=== PATIENT | female | born 1935 | race Caucasian/White ===

== ENCOUNTER → 2019-07-15 | Outpatient (CLI) | payer MEDICARE ==
--- NOTE | 2019-07-15 13:31 | PCVCIMAG ---
APPROVED REPORT Study performed: 07/15/2019 09:52:59 EXAM: Comprehensive 2D, Doppler, and color-flow Echocardiogram Patient Location: Echo lab Status: routine BSA: 1.51 HR: 100 bpmBP: 118/80 mmHg Rhythm: Atrial Fibrillation Other Information Study Quality: Good Indications Atrial Fibrillation 2D Dimensions IVSd: 12.00 (7-11mm)LVOT Diam: 17.22 (18-24mm) LVDd: 28.18 mm PWd: 11.60 (7-11mm)Ascending Ao: 28.99 (22-36mm) LVDs: 23.75 (25-40mm) Left Atrium: 33.27 (27-40mm) Aortic Root: 24.24 mm LV Single Plane 4CH: 50.64 % LV Single Plane 2CH: 68.82 % Biplane EF: 61.2 % Volumes Left Atrial Volume (Systole) Single Plane 4CH: 48.83 mLSingle Plane 2CH: 63.64 mL LA ESV Index: 41.00 mL/m2 Aortic Valve AoV Peak Mono.: 1.16 m/s AO Peak Gr.: 7.40 mmHgLVOT Max P.19 mmHg LVOT Max V: 0.87 m/s VINAY Vmax: 1.75 cm2 Mitral Valve E/A Ratio: 1.2 MV E Max Mono.: 1.02 m/s MV A Mono.: 0.84 m/s Pulmonary Valve PV Peak Gr.: 2.97 mmHg Tricuspid Valve TR Peak Mono.: 2.16 m/s TR Peak Gr.: 21.57 mmHg Left Ventricle The left ventricle is normal size. There is normal LV segmental wall motion. There is normal left ventricular wall thickness. Left ventricular systolic function is normal. The left ventricular ejection fraction is within the normal range. LVEF is >55%. This study is not technically sufficient to allow evaluation of the LV diastolic function due to atrial fibrillation. Right Ventricle Right ventricle is dilated. The right ventricular systolic function is normal. Atria Left atrium is moderately dilated. Right atrium is dilated. Aortic Valve The aortic valve is normal in structure. Trace aortic regurgitation. There is no aortic valvular stenosis. Mitral Valve The mitral valve is normal in structure. Mild to moderate mitral regurgitation. No evidence of mitral valve stenosis. Tricuspid Valve The tricuspid valve is normal in structure. Mild to moderate tricuspid regurgitation. Pulmonary artery pressure is 29mmHg. Pulmonic Valve The pulmonary valve is normal in structure. Trace pulmonic regurgitation. Great Vessels The aortic root is normal in size. IVC is normal in size and collapses >50% with inspiration. Pericardium There is no pericardial effusion. <Conclusion> The left ventricle is normal size. LVEF is >55%. This study is not technically sufficient to allow evaluation of the LV diastolic function due to atrial fibrillation. Right ventricle is dilated. Left atrium is moderately dilated. Right atrium is dilated. Trace aortic regurgitation. Mild to moderate mitral regurgitation. Mild to moderate tricuspid regurgitation. Pulmonary artery pressure is 29mmHg. The aortic root is normal in size. There is no pericardial effusion.
== END | disposition home or self-care (01) ==
LOC: PCVCIMAG 09:20
PROVIDERS: ATTEND Internal Medicine Cardiovascular Disease
DX: I08.1 Rheumatic disorders of both mitral and tricuspid valves (principal); I48.91 Unspecified atrial fibrillation; I10 Essential (primary) hypertension; E78.00 Pure hypercholesterolemia, unspecified
CPT/HCPCS: 36415; 80061; 93005; 93306; G0463

== ENCOUNTER → 2019-07-21 | Outpatient (CLI) | payer MEDICARE | END | disposition home or self-care (01) | LOC: PCVCCLINIC 10:00 | PROVIDERS: ATTEND Nurse Practitioner Adult Health | DX: I48.91 Unspecified atrial fibrillation (principal); I38 Endocarditis, valve unspecified; D68.59 Other primary thrombophilia; I10 Essential (primary) hypertension; E03.9 Hypothyroidism, unspecified | CPT/HCPCS: 93005; G0463 ==